=== PATIENT | female | born 1955 | race Caucasian/White ===

== ENCOUNTER → 2017-06-09 | Outpatient (CLI) | payer BC ==
[~2017-06-09] MED LIST: ASPI-715 PO
--- NOTE | 2017-06-11 11:40 | RADIOLOGY IMAGING REPORT ---
FACILITY: [facility] - [place], [place] PATIENT NAME: COLLEEN NETTLES : [id number] MR: [id number] V: [id number] EXAM DATE: ORDERING PHYSICIAN: LEONELA NOLEN TECHNOLOGIST: Neema Elise PROCEDURE:BILATERAL DIGITAL SCREENING MAMMOGRAM WITH CAD ASSISTED INTERPRETATION & 3D BREAST TOMOSYNTHYSIS COMPARISON:Prior mammograms 02/12/11. INDICATIONS:screening FINDINGS: A small amount of fibroglandular tissue is seen throughout the breasts. The parenchymal pattern has remained stable when allowing for difference in mammographic technique & patient positioning. There is no evidence of malignant appearing mass, malignant appearing calcification or secondary sign of malignancy in either breast. DIAGNOSTIC CATEGORY 2--BENIGN FINDING. RECOMMENDATIONS: ROUTINE MAMMOGRAM AND CLINICAL EVALUATION. IMPRESSION: BETHANY 2: Benign Finding 1. No significant abnormality is seen Dictated by: Nikki Garcia M.D. on 06/09/2017 at 16:09 Transcribed by: RICHARD on 06/10/2017 at 11:12 Approved by: Nikki Garcia M.D. on 06/11/2017 at 11:39 [facility]
== END ==
LOC: MAMO 00:46
PROVIDERS: ATTEND Nurse Practitioner Family
DX: Z12.31 Encounter for screening mammogram for malignant neoplasm of breast (principal)
CPT/HCPCS: 77063; 77067

== ENCOUNTER 2017-06-29 16:36 | Observation (INO) | payer BC ==
[~2017-06-29] VITALS: Ht 162.6 cm; Wt 80.1 kg
[2017-06-29] VITALS (13 sets, daily range): BP systolic 88–129; BP diastolic 61–87
[~2017-06-29 16:36] MED LIST changes: -AMOX-559 PO; -HYDR-4309 PO; -IOPAMIDOL 76% 75 ML INFUS BTL 75 ML ONE; -KET10 PO; -NS 0.9% 20 ML SDV 40 ML ONE
[2017-06-29] MEDS ORDERED: NORMOSOL R SOLN(*) 1000 ML BAG 1,000 ML IV PRN ×3 (17:06→19:05)
--- NOTE | 2017-06-29 17:06 | General Surgery 1 H&P ---
History of Present Illness Chief Complaint right lower quadrant pain History of Present Illness 62 yo previously healthy female with a 3 day history of right lower quadrant pain. it has been persistent. no appetite. no nausea or vomiting. no change in bms, no urinary complaints. seen by osmin hernandez who obtained [place] [address] suggests a perforated appendix. History Other Past Surgeries: breast biopsy Home Meds Reported Medications Aspirin (Aspirin) 81 Mg Tablet.dr, 81 MG PO DAILY, 0 Refills 04/28/11 Allergies: Coded Allergies: No Known Drug Allergies (Verified , 04/30/11) Review of Systems All Systems Reviewed/Normal: Yes Exam General Appearance: Alert, Awake Cardiovascular: Regular Rate and Rhythm Respiratory: Clear to Auscultation GI: Other (tender with guarding to deep palpation in the right lower quadrant.) Assessment and Plan Problems: (1) Perforated appendicitis Assessment & Plan: will proceed with lap appy. discussed the procedure, complications and recovery with pt. Copies to: HUMA GOELP; BERNARDINO GEORGE MD Venous Thromboembolism Antithrombotics Is Pt On Any Antithrombotics?: No BERNARDINO GEORGE MD Jun 29, 2017 17:06
[2017-06-29] MEDS ORDERED: SUCCINYLCHOL CHL 200MG/10ML VL ONE (17:07)
[2017-06-29] MEDS ORDERED: PROPOFOL EMUL(*) 10MG/ML 20 ML 20 ML ONE (17:07)
[2017-06-29] MEDS ORDERED: ONDANSETRON 4 MG/2 ML VIAL ONE (17:07)
[2017-06-29] MEDS ORDERED: fentaNYL CITR 100 MCG/2 ML AMP ONE ×2 (17:07→19:41)
[2017-06-29] MEDS ORDERED: DEXAMETHASONE SOD PHOS 10MG/ML ONE (17:07)
[2017-06-29] MEDS ORDERED: ROCURONIUM BROM 10 MG/ML 10 ML ONE (17:07)
[2017-06-29] MEDS ORDERED: LIDOCAINE MPF 1% 5 ML VIAL ONE (17:07)
--- NOTE | 2017-06-29 17:09 | Post Operative Progress Note ---
Post Operative Progress Note Date: Jun 29, 2017 Time: 19:04 Surgeon: xiomara Anesthesia: dr dixon Pre-Op Diagnosis: perforated appendicitis Post-Op Diagnosis: same Procedure(s): BERNARDINO Bergman MD Jun 29, 2017 17:09
[2017-06-29] MEDS ORDERED: MORPHINE 1 MG/ML 30 ML PCA IV PRN (17:10)
[2017-06-29] MEDS ORDERED: PIPERACILLIN/TAZO*3.375GM VIAL 3.375 GM in NS(*) 0.9% 100 ML ADDVANT BAG 100 ML IVPB SCH (17:10)
[2017-06-29] MEDS ORDERED: ONDANSETRON 4 MG/2 ML VIAL IVP PRN (17:10)
[2017-06-29] MEDS ORDERED: MIDAZOLAM 2 MG/2 ML VIAL IVP PRN (17:10)
[2017-06-29] MEDS ORDERED: LIDOCAINE/SOD BICARB 8.4% SYR ID ONE (17:10)
[2017-06-29] MEDS ORDERED: FAMOTIDINE 20 MG/50 ML PREMIX IVPB ONE (17:10)
[2017-06-29] MEDS ORDERED: PIPERACILLIN/TAZO*3.375GM VIAL 3.375 GM in NS(*) 0.9% 100 ML ADDVANT BAG 100 ML IVPB ONE (17:20)
[2017-06-29] MEDS ORDERED: ROPIVACAINE 0.2% 20 ML VIAL ONE (17:28)
[2017-06-29] MEDS ORDERED: PHENYLEPHRINE 10 MG/1 ML VIAL ONE (17:30)
[2017-06-29] MEDS ORDERED: SUGAMMADEX SOD 200 MG/2 ML SDV ONE (18:43)
[2017-06-29] MEDS ORDERED: KETOROLAC 30 MG/ML VIAL ONE ×2 (18:43→18:44)
[2017-06-29] MEDS ORDERED: NALOXONE HCL 0.4 MG/ML VIAL IVP PRN (19:10)
[2017-06-29] MEDS: PIPERACILLIN/TAZO*3.375GM VIAL 3.375 GM in NS(*) 0.9% 100 ML ADDVANT BAG 100 ML IVPB SCH (23:50)
[2017-06-30] VITALS (8 sets, daily range): BP systolic 93–110; BP diastolic 60–71; Ht 162.6 cm; Wt 80.1 kg
[2017-06-30] MEDS ORDERED: PIPERACILLIN/TAZO*3.375GM VIAL 3.375 GM in NS(*) 0.9% 100 ML ADDVANT BAG 100 ML IVPB SCH
[2017-06-30] MEDS: KETOROLAC 30 MG/ML VIAL IVP SCH ×2 (00:31→06:36)
[2017-06-30] MEDS: PIPERACILLIN/TAZO*3.375GM VIAL 3.375 GM in NS(*) 0.9% 100 ML ADDVANT BAG 100 ML IVPB SCH (05:48)
[2017-06-30 05:59] LABS: PLATELET COUNT, AUTOMATED 198 K/uL (150-450)
--- NOTE | 2017-06-30 08:51 | General Surgery Progress Note ---
Subjective Progress Notes Subjective no complaints, pain controlled, tolerated diet, ambulated Physical Exam Vital Signs Date Time Temp Pulse Resp B/P (MAP) Pulse Ox O2 Delivery O2 Flow Rate FiO2 06/30/17 08:10 87 06/30/17 08:10 Nasal Cannula 2.0 06/30/17 07:04 98.9 16 107/70 (82) 06/30/17 04:00 72 Intake and Output 07/01/17 07:00 Output Total 200 ml Balance -200 ml Output Urine Total 200 ml # Voids 1 General Appearance: Alert, Awake, No Acute Distress GI: Soft and Non-Tender Result Diagram: 06/30/17 0540 Assessment and Plan Problems: (1) Perforated appendicitis Assessment & Plan: will proceed with lap appy. discussed the procedure, complications and recovery with pt. 06/30/17 feeling better wbc down, home on antibiotics Exam Sepsis Risk: No Definite Risk BERNARDINO GEORGE MD Jun 30, 2017 08:51
[2017-06-30] MEDS ORDERED: HYDR-4309 PO (08:52)
[2017-06-30] MEDS ORDERED: KET10 PO (08:52)
[2017-06-30] MEDS ORDERED: AMOX-559 PO (08:52)
--- NOTE | 2017-06-30 08:53 | Short(Outpt) Discharge Summary ---
Discharge Summary Reason for Hosp/Final Diag: (1) Perforated appendicitis Hospital Course & Plan: will proceed with marie hernandez. discussed the procedure, complications and recovery with pt. 06/30/17 feeling better wbc down, home on antibiotics Departure Discharge to: Home Discharge Instructions Home Meds Active Scripts Amoxicillin/Pot Clav 875-125 Mg Tab (AUGMENTIN 875-125 TABLET) 1 Each Tablet, 1 TAB PO Q12H, #10 TAB Prov:BERNARDINO GEORGE MD 06/30/17 Hydrocodone Bit/Acetaminophen (NORCO 5-325 TABLET) 1 Each Tablet, 1 EACH PO Q4H Y for PAIN, #30 TAB Prov:BERNARDINO GEORGE MD 06/30/17 Ketorolac Tromethamine (KETOROLAC TROMETHAMINE) 10 Mg Tab, 10 MG PO Q6H, #14 TAB Prov:BERNARDINO GEORGE MD 06/30/17 Reported Medications Aspirin (Aspirin) 81 Mg Tablet.dr, 81 MG PO DAILY, 0 Refills 04/28/11 Diet: Regular Activity: As Tolerated Special Instructions: remove bandage and shower tomorrow to see me in one week, call [phone] for apt may use ibuprofen after toradol gone BERNARDINO GEORGE MD Jun 30, 2017 08:53
[2017-06-30] MEDS ORDERED: PANTOPRAZOLE SOD 40 MG IV VIAL IVP SCH (09:00)
--- NOTE | 2017-06-30 18:56 | OPERATIVE REPORT 1 ---
EVENT DATE: June 29, 2017 SURGEON: Jack Good MD ANESTHESIOLOGIST: Carlos Tena MD ANESTHESIA: General. PREOPERATIVE DIAGNOSIS Perforated appendix. POSTOPERATIVE DIAGNOSIS Perforated appendix. PROCEDURE PERFORMED Laparoscopic appendectomy. DESCRIPTION OF PROCEDURE The patient was placed in the supine position and given general anesthetic. Her abdomen was prepped and draped in a sterile fashion. The skin was anesthetized with 0.2% ropivacaine. A small incision was made above the umbilicus. A Veress needle was inserted. The abdomen was insufflated with CO2. I placed a 5 mm port in the left lower quadrant and a 10 mm in the suprapubic region under direct vision. The patient was placed in Trendelenburg and rotated to the left. She had a marked amount of inflammatory reaction down in the pelvis. The small bowel was adhered to the anterior abdominal wall and to one another. With some gentle dissection, we were able to move this small bowel out of the way. We encountered a large amount of fibrinous exudate at the tip of the appendix. This was removed with suction and with peeling it away. The stuff that peeled away easily we removed. We then followed the appendix to the appendiceal-cecal junction. This appendix was in much better shape, not inflamed. This got our orientation. We then continued to dissect from the appendiceal-cecal junction towards the tip which was down in the pelvis , and we were able to free up the mesoappendix and the tip of the appendix. We then divided the mesoappendix with the Harmonic scalpel to the appendiceal- cecal junction. We placed an 0 chromic Endoloop there. We placed 2-0 PDS Endoloop distal to this, cut between the two PDS Endoloops, placed the appendix in an Endo Pouch, and removed it from the field. We suctioned, irrigated, and removed any fibrinous exudate that we could and cleaned up the area as best we could. There was no purulent material. There was no pus pocket that we could identify. This was like a thick, jelly-like rind that was removed. We had an excellent tie on the appendiceal stump. We had excellent hemostasis. At this point, the ports were removed under direct vision. No bleeding was noted. The suprapubic fascia was closed with interrupted 0 Vicryl. The skin was closed with interrupted 4-0 Maxon. Steri-Strips and an Airstrip were placed. The patient tolerated the procedure well. No apparent complications. MTDD
== END 2017-06-30 08:53 | disposition home or self-care (01) ==
LOC: EDSTATUS 16:49 → OR 16:50 → INTOOBSV 20:06 → MED 20:06
PROVIDERS: ADMIT Surgery; ATTEND Surgery
DX: K35.2 Acute appendicitis with generalized peritonitis (principal)
CPT/HCPCS: 36415; 44970; 85025; 88304; C9113; G0378; J0330; J1100; J1885; J2001; J2370; J2405; J2543; J2704; J2795; J3010; J7050

== ENCOUNTER → 2017-06-29 | Outpatient (CLI) | payer BC ==
[~2017-06-29] MED LIST changes: +AMOX-559 PO; +HYDR-4309 PO; +IOPAMIDOL 76% 75 ML INFUS BTL 75 ML ONE; +KET10 PO; +NS 0.9% 20 ML SDV 40 ML ONE
[2017-06-29 15:22] LABS: PLATELET COUNT, AUTOMATED 242 K/uL (150-450)
--- NOTE | 2017-06-29 16:36 | RADIOLOGY IMAGING REPORT ---
FACILITY: [facility] PATIENT NAME: Carlos Giron : 1955 MR: [id number] V: [id number] EXAM DATE: ORDERING PHYSICIAN: LEONELA NOLEN TECHNOLOGIST: Location: [facility] - [place] Patient: Carlos Giron : 1955 Visit/Account:[id number] Date of Sevice: 06/29/2017 EXAMINATION: CT abdomen and pelvis with IV contrast HISTORY: Right lower quadrant pain for 3 days. TECHNIQUE: Axial CT images of the abdomen and pelvis were obtained with IV contrast, with coronal a nd sagittal 2D reconstructed images. One of the following dose optimization techniques was utilized in the performance of this exam: Autom ated exposure control; adjustment of the mA and/or kV according to the patient's size; or use of an i terative reconstruction technique. Specific details can be referenced in the facility's radiology C T exam operational policy. Contrast: 75 mL of IV Isovue-370. COMPARISON: None. FINDINGS: Liver: Negative. Gallbladder and bile ducts: Negative. Spleen: Negative. Pancreas: Negative. Adrenal glands: Negative. Kidneys: Negative. No hydronephrosis or urinary calculi. Bowel and peritoneum: Significant inflammatory process in the lower right abdomen and pelvis compatib le with a ruptured appendicitis. The cecum is located above the level of the iliac crest. The appendi x extends inferiorly into the deep right right pelvis. The distal appendix is irregular and dilated u p to 11 mm with wall thickening and enhancement. There appears to be a small focus of discontinuity along the wall of the distal appendix (axial image 116), suspicious for perforation. There is a poorl y defined pocket of fluid surrounding the distal inflamed tip of the appendix measuring approximately 3.5 x 4.6 cm, compatible with phlegmon. No organized abscess at this time. There is wall thickening and enhancement of adjacent small bowel loops in the right pelvis likely representing secondary infla mmation. Additional small amount of free fluid in the deep posterior pelvis. The small bowel and colon are normal in caliber. No evidence of obstruction. Scattered colonic divert iculosis, without evidence of diverticulitis. No free intraperitoneal air. Pelvic structures: Negative. Lymph node assessment: Negative. Vessels: Mild vascular calcifications. Normal caliber abdominal aorta. Musculoskeletal: Chronic degenerative changes along the spine. No acute osseous findings. Body wall: Negative. Lung bases: Negative. IMPRESSION: 1. Inflammatory process in the lower right abdomen and pelvis, compatible with a ruptured appendiciti s. There is a poorly defined phlegmon in the right pelvis surrounding the tip of the inflamed appendi x, measuring up to 4.5 cm, with a small focus of focal discontinuity along the wall of the distal keshia endix. 2. Wall thickening and enhancement of adjacent small bowel loops in the right pelvis likely represent s secondary inflammation. 3. No other acute intra-abdominal findings. Findings were discussed with LEONELA NOLEN at 06/29/2017 4:32 PM. Report Dictated By: Telly Zhou MD at 06/29/2017 4:21 PM Report E-Signed By: Telly Zhou MD at 06/29/2017 4:33 PM WSN:[id number]
== END ==
LOC: CT 15:09
PROVIDERS: ATTEND Nurse Practitioner Family
DX: R93.5 Abnormal findings on diagnostic imaging of other abdominal regions, including retroperitoneum (principal)
CPT/HCPCS: 36415; 74177; 82565; 85025; J7050; Q9967

== ENCOUNTER → 2017-07-07 | Outpatient (CLI) | payer BC ==
[2017-06-30 10:35] VITALS: BMI 30.2
[~2017-07-07] MED LIST changes: +AMOX-559 PO; +HYDR-4309 PO; +KET10 PO
[2017-07-07 10:39] LABS: PLATELET COUNT, AUTOMATED 469 K/uL (150-450)
== END ==
LOC: LAB 09:35
PROVIDERS: ATTEND Surgery
DX: Z87.19 Personal history of other diseases of the digestive system (principal)
CPT/HCPCS: 36415; 85025

== ENCOUNTER → 2017-07-08 | Outpatient (CLI) | payer BC ==
[2017-06-30 10:35] VITALS: BMI 30.2
[~2017-07-08] MED LIST changes: +IOPAMIDOL 76% 75 ML INFUS BTL 75 ML ONE
--- NOTE | 2017-07-08 10:50 | RADIOLOGY IMAGING REPORT ---
[facility] PATIENT NAME: Carlos Giron : 1955 MR: [id number] V: [id number] EXAM DATE: ORDERING PHYSICIAN: BERNARDINO GEORGE TECHNOLOGIST: Location: [facility] Patient: Carlos Giron : 1955 Visit/Account:[id number] Date of Sevice: 07/08/2017 ABDOMEN/PELVIS WITH CONTRAST HISTORY: History of ruptured appendix one week ago, right lower quadrant pain with elevated white bl ood cell count TECHNIQUE: Following administration of IV contrast contiguous axial images acquired through the abdom en/pelvis. Coronal and sagittal reformatting also performed. Dose Lowering Technique One of the following dose optimization techniques was utilized in the performance of this exam: Autom ated exposure control; adjustment of the mA and/or kV according to the patient's size; or use of an i terative reconstruction technique. Specific details can be referenced in the facility's radiology C T exam operational policy. CONTRAST: 75 mL Isovue-370 COMPARISON: June 29, 2017 FINDINGS: Visualized lung bases: There is a small amount of by basilar atelectasis and small left pleural effu sussy Hepatobiliary: There is cholelithiasis present Spleen: Negative. Adrenals: Negative. Pancreas: Negative. Kidneys ureters or bladder: Negative. Genitalia: Negative. GI: There is diverticulosis of the left-sided colon although no CT evidence of acute diverticulitis. Patient status post appendectomy. There is mild enhancement of the adjacent small bowel loops alth ough there appears to be overall less inflammation in the right lower quadrant. Only a small amount of fluid is identified within the pelvis which does not appear to represent an organized collection a nd may simply represent a small amount of postoperative change. Vessels/spaces/nodes: There are mild vascular calcifications present Bones/soft tissues: Negative. Additional findings: None pertinent. IMPRESSION: There are post surgical changes from an appendectomy with only mild enhancement adjacent small bowel loops. There is an overall improvement in the inflammatory changes previously noted in the right low er quadrant. Only a small amount of fluid is identified in the pelvis which does not appear to repre sent an organized collection may simply be postoperative in nature. Diverticulosis left-sided colon although no CT evidence of acute diverticulitis Cholelithiasis Small amount of by basilar atelectasis and small left pleural effusion Report Dictated By: Nikki Garcia MD at 07/08/2017 10:01 AM Report E-Signed By: Nikki Garcia MD at 07/08/2017 10:45 AM YEFRIN:HEDY
== END ==
LOC: CT 00:34
PROVIDERS: ATTEND Surgery
DX: K80.20 Calculus of gallbladder without cholecystitis without obstruction (principal); Z90.89 Acquired absence of other organs; I70.8 Atherosclerosis of other arteries; J98.11 Atelectasis; J90 Pleural effusion, not elsewhere classified
CPT/HCPCS: 36415; 74177; 82565; Q9967